=== PATIENT | female | born 1955 | race Caucasian/White ===

== ENCOUNTER → 2021-09-12 12:49 | Outpatient (CLI) | payer MEDICARE, SELFPAY ==
--- NOTE | 2021-09-12 12:57 | DI.RAD.S_ITS ---
PROCEDURE: XR LUMBAR SPINE 2-3V INDICATIONS: BACK/PELVIS PAIN TECHNIQUE: 3 views of the lumbar spine were acquired. COMPARISON: None. FINDINGS: Bones: 5 [id number] vertebrae are present. No traumatic subluxation. Moderate disc height loss with endplate sclerosis at L5-S1. No vertebral body compression fractures. No suspicious bony lesions. Soft tissues: Overlying bowel gas pattern is normal. No suspicious soft tissue calcifications. IMPRESSION: No acute osseous abnormality. Dictated by: Javon Shin M.D. on 09/12/2021 at 13:20 Approved by: Javon Shin M.D. on 09/12/2021 at 13:22
--- NOTE | 2021-09-12 12:57 | DI.RAD.S_ITS ---
PROCEDURE: XR HIP W PEL IF DONE RT 2V INDICATIONS: BACK/PELVIS PAIN TECHNIQUE: AP pelvis with lateral view(s) of the right hip(s). COMPARISON: None. FINDINGS: Bones: No fractures or dislocations. Pelvic ring appears intact. No suspicious bony lesions. Mild joint narrowing with periarticular osteophyte formation of the hip joints. Soft tissues: The visualized bowel gas pattern is normal. No suspicious soft tissue calcifications. IMPRESSION: Mild symmetric hip joint degeneration. Dictated by: Donal Herrera [facility] WITH [facility] Interpreted: Mikal Penaloza MD on 09/12/2021 at 13:29 Transcribed by: ADRIAN on 09/12/2021 at 13:30 Approved by: Mikal Penaloza M.D. on 09/12/2021 at 16:13
== END ==
PROVIDERS: PCP Orthopaedic Surgery; Referring Provider Orthopaedic Surgery; Visit Provider Orthopaedic Surgery
DX: M54.9 Dorsalgia, unspecified (principal); R10.2 Pelvic and perineal pain; M54.31 Sciatica, right side; M16.0 Bilateral primary osteoarthritis of hip
CPT/HCPCS: 72100; 73502

== ENCOUNTER → 2021-10-01 12:54 | Outpatient (CLI) | payer MEDICARE, SELFPAY ==
--- NOTE | 2021-10-01 | DI.MRI.S_ITS ---
PROCEDURE: MR HIP RT WO CON INDICATIONS: Dorsalgia, unspecified TECHNIQUE: Noncontrast coronal T1 spin echo and STIR through the bony pelvis. Coronal and axial T2 fast spin echo with fat saturation, sagittal T1 spin echo, and oblique axial T2 fast spin echo with fat saturation through the hip. COMPARISON: None. FINDINGS: BONES AND JOINTS: Osseous structures: No fracture identified. Sacroiliac joints: Unremarkable in signal intensity. Lower lumbar spine: Diffuse spondylosis and facet arthropathy. Other: No evidence of osteonecrosis. TENDONS AND LIGAMENTS: Gluteus medius and minimus tendons: Gluteus minimus thickening and intrasubstance signal changes. There is also partial tear of the insertion of the gluteus medius tendon with adjacent soft tissue edema. No associated muscle atrophy. Proximal iliotibial band: Intact. Iliopsoas tendon: Intact. Origin of the hamstring tendon: Minimal tendinopathy and signal change, technically age indeterminate. Rectus femoris muscle origins: Intact Ligamentum teres: Intact where visualized. LABRUM: Labrum: Frayed appearance of the anterosuperior labrum however this could be age appropriate. Minimal if any adjacent or associated partial-thickness chondral loss. Alpha angle of the femur: Within normal limits at less than 55 degrees. Although, there is a small dysplastic bump at the anterior femoral neck on image 16/7. SOFT TISSUES: Visualized muscles: Normal bulk and internal signal. Quadratus femoris muscle: Normal. Proximal sciatic neurovascular bundle: Normal adjacent to the hamstring tendons. Other: No pelvic free fluid. Bladder: Normal. Genitourinary structures and bowel loops: Normal where visualized. IMPRESSION: Hip abductor insertional tendinopathy and partial tear with adjacent soft tissue edema as above. Age-appropriate fraying of the anterosuperior labrum, without discrete tear identified. Small dysplastic bump seen at the anterior femoral neck incidentally noted. Dictated by: Mikal Penaloza M.D. on 10/01/2021 at 14:51 Approved by: Mikal Penaloza M.D. on 10/01/2021 at 15:00
--- NOTE | 2021-10-01 | DI.MRI.S_ITS ---
PROCEDURE: MR LUMBAR SPINE WO CON INDICATIONS: Dorsalgia, unspecified TECHNIQUE: Noncontrast sagittal T1 spin echo and T2 fast echo, sagittal STIR, axial T1 and T2 fast spin echo through the lumbar spine. In cases with scoliosis, additional coronal T2 fast spin echo may be performed. COMPARISON: None. FINDINGS: Image quality: Excellent. Alignment and Curvature: There is normal bony alignment. Bone Marrow: Marrow is of normal overall signal. No acute vertebral body compression fractures. Multilevel degenerative endplate sclerosis and spurring. Diffuse facet arthropathy. This is most notable at the L5-S1 level Spinal Cord: Conus medullaris terminates at the L1 level. Visualized cord demonstrates normal signal and size. Paraspinous Soft Tissues: No paravertebral masses. T12-L1: Normal appearance. L1-L2: Normal appearance. L2-L3: Normal appearance. L3-L4: Mild canal narrowing. Partial effacement of both lateral recesses with bilaterally symmetric appearance. Moderate right foraminal stenosis. Mild left foraminal narrowing L4-L5: Mild canal narrowing. Partial effacement of both lateral recesses with bilaterally symmetric appearance. Mild bilateral foraminal stenoses. L5-S1: No definite canal stenosis. Partial effacement of both lateral recesses with bilaterally symmetric appearance. Moderate left foraminal stenosis. Mild right foraminal narrowing. IMPRESSION: Multilevel lumbar spondylosis and facet arthropathy. Diffuse bilateral foraminal narrowing as detailed above by spinal level. Dictated by: Mikal Penaloza M.D. on 10/01/2021 at 14:45 Approved by: Mikal Penaloza M.D. on 10/01/2021 at 14:51
--- NOTE | 2021-10-01 | DI.MRI.S_ITS ---
PROCEDURE: MR PELVIS WO CON INDICATIONS: Dorsalgia, unspecified TECHNIQUE: Noncontrast coronal and axial T1 spin echo and STIR through the bony pelvis. COMPARISON: None. FINDINGS: Image quality: Some images are degraded by motion artifact. Bones: Bone marrow of the pelvic ring, sacrum, and proximal femurs show normal signal throughout. No intraosseous lesions or fractures identified. The visualized lower lumbar spine appears normally aligned. Tendons: The gluteus medius and minimus tendons appear intact, without associated muscle atrophy. The nearby proximal iliotibial band also appears intact. The iliopsoas tendon appears intact, without adjacent bursal fluid collections or evidence for impingement syndrome. T2 hyperintense signal at the right hamstring origin (series 7, image 36), concerning for partial tear. The origin of the left hamstring tendon is intact at the ischial tuberosity, as well as the associated sacrotuberous ligament. The straight and reflected heads of the rectus femoris muscle origin appear intact, as well as the conjoint tendon. Soft tissues: Visualized muscles demonstrate normal bulk and internal signal. No joint effusions. No free pelvic fluid. Prolapse of the urinary bladder. Large amount of stool in the visualized cecum/ascending colon. IMPRESSION: 1. Partial tear of the right hamstring at the origin. Dictated by: Javon Shin M.D. on 10/01/2021 at 15:02 Approved by: Javon Shin M.D. on 10/01/2021 at 15:08
== END ==
PROVIDERS: PCP Family Medicine; Referring Provider Family Medicine; Visit Provider Family Medicine
DX: M48.061 Spinal stenosis, lumbar region without neurogenic claudication (principal); M48.07 Spinal stenosis, lumbosacral region; S76.011A Strain of muscle, fascia and tendon of right hip, initial encounter; M47.26 Other spondylosis with radiculopathy, lumbar region; S76.311A Strain of muscle, fascia and tendon of the posterior muscle group at thigh level, right thigh, initial encounter; R10.2 Pelvic and perineal pain; M79.89 Other specified soft tissue disorders
CPT/HCPCS: 72148; 72195; 73721

== ENCOUNTER → 2022-05-28 11:58 | Outpatient (CLI) | payer MEDICARE, SELFPAY | PROVIDERS: PCP Family Medicine; Referring Provider Family Medicine Adult Medicine; Visit Provider Family Medicine Adult Medicine | DX: M85.80 Other specified disorders of bone density and structure, unspecified site; Z53.8 Procedure and treatment not carried out for other reasons ==

== ENCOUNTER → 2022-08-07 09:43 | Outpatient (CLI) | payer MEDICARE, SELFPAY | PROVIDERS: PCP Family Medicine; Referring Provider Family Medicine; Visit Provider Family Medicine | DX: Z13.820 Encounter for screening for osteoporosis (principal); Z78.0 Asymptomatic menopausal state; M85.88 Other specified disorders of bone density and structure, other site; Z90.710 Acquired absence of both cervix and uterus | CPT/HCPCS: 77080 ==

== ENCOUNTER → 2023-10-07 11:12 | Outpatient (CLI) | payer MEDICARE, SELFPAY ==
--- NOTE | 2023-10-07 | DI.RAD.S_ITS ---
Bone Density Report Name: ISAAK February Age: 67 Sex: Female Ethnicity: White Date of : 1955 Indication: osteopenia; monitoring treatment; Referring Provider: VENTURA ALFARO Study: Bone densitometry was performed. Exam Date: October 07, 2023 Accession number: [id number] Bone Density: Region BMD T-score Z-score Classification AP Spine(L1-L4) 0.898 -1.4 0.7 Osteopenia Femoral Neck (Left) 0.578 -2.4 -0.7 Osteopenia Total Hip (Left) 0.706 -1.9 -0.5 Osteopenia Femoral Neck (Right) 0.622 -2.0 -0.3 Osteopenia Total Hip (Right) 0.711 -1.9 -0.5 Osteopenia Total Hip Mean 0.708 -1.9 -0.5 Osteopenia World Health Organization criteria for BMD impression classify patients as: Normal (T-score at or above -1.0), Osteopenia (T-score between -1.0 and -2.5), or Osteoporosis (T-score at or below -2.5). 10-year Fracture Risk: FRAX not reported because: Treated for osteoporosis Previous Exams: -- Region Exam Age BMD T-score BMD Change BMD Change Date g/cm2 vs Baseline vs Previous -- AP Spine (L1-L4) 10/07/2023 67 0.898 -1.4 0.051 (6.0%)* 0.051 (6.0%)* 08/07/2022 66 0.847 -1.8 Total Hip(Left) 10/07/2023 67 0.706 -1.9 -0.015 (-2.1%) -0.015 (-2.1%) 08/07/2022 66 0.721 -1.8 Total Hip(Right) 10/07/2023 67 0.711 -1.9 0.000 (0.0%) 0.000 (0.0%) 08/07/2022 66 0.711 -1.9 -- *Denotes significance at 95% confidence level, LSC for AP Spine = 0.022 g/cm2, LSC for Total Hip = 0.027 g/cm2 Impression: The patient has low bone mass, based on the Left Femoral Neck T-score. No significant bone loss was observed. Discussion: PATIENT UNDER TREATMENT WITH NO SIGNIFICANT BMD LOSS SINCE LAST EXAM. In an untreated patient, BMD typically declines with age. A lack of decline or gain is usually a sign that treatment is efficacious and fracture risk is reduced. It is important to ask patients whether they are taking their medications and to encourage continued and appropriate compliance with their osteoporosis therapies to reduce fracture risk. It is also important to review their risk factors and encourage appropriate calcium and vitamin D intakes, exercise, fall prevention and other lifestyle measures. Follow-Up: Consider a repeat BMD and Vertebral Fracture Assessment (VFA) exam in 2 years or sooner if medically necessary, to reassess this patient's status. Reported by: MELISSA PORRAS M.D. on 10/07/2023 11:39:00 AM.
== END ==
PROVIDERS: Referring Provider Internal Medicine; Visit Provider Internal Medicine
DX: Z78.0 Asymptomatic menopausal state (principal); M81.0 Age-related osteoporosis without current pathological fracture; Z79.83 Long term (current) use of bisphosphonates; Z90.710 Acquired absence of both cervix and uterus
CPT/HCPCS: 77080